=== PATIENT | male | born 1985 | race Caucasian/White ===

== ENCOUNTER → 2021-03-21 | Outpatient (REF) ==
--- NOTE | 2021-03-21 10:04 | REP ---
INDICATION: CP. COMPARISON: No comparison chest x-ray. TECHNIQUE: Two views.. FINDINGS: The lungs are well inflated and free of infiltrate. The pleural angles are sharp. The heart size is normal. Pulmonary vasculature is not increased. No significant bony abnormality is seen. IMPRESSION: Negative chest x-ray. <Electronically signed by Clifton Ledesma > 03/21/21 1000
== END ==
LOC: M PLAIMG 09:47
PROVIDERS: ATTEND Internal Medicine
DX: G80.9 Cerebral palsy, unspecified (principal)